=== PATIENT | female | born 1960 | race Caucasian/White ===

== ENCOUNTER → 2016-10-03 | Outpatient (CLI) | payer BC ==
[~2016-10-03] MED LIST: AMLO2.5T2 PO; ASPI-113 PO; MEDR10TA PO; METO25TA3 PO
[2016-10-03 13:14] LABS: BASO % 0.8 %; BASO ABS # 0.04 K/uL (0-0.2); COMPLETE YES; EOS % 1.7 %; HEMATOCRIT 40.4 % (37-47); IG% 0.2 %; LYMPH % 21.2 %; MEAN CELL VOLUME 94.6 fL (80-100); MEAN CORPUSCULAR HEMOGLOBIN 32.3 pg (25-34); MEAN CORPUSCULAR HGB CONC 34.2 g/dl (32-36); MEAN PLATELET VOLUME 11.2 fL (7.4-10.4); MONO % 5.7 %; NEUT % 70.4 %; PLATELET COUNT 208 K/uL (130-400); RED BLOOD COUNT 4.27 M/uL (4.2-5.4); WHITE BLOOD COUNT 4.72 K/uL (4.8-10.8)
[2016-10-03 13:19] LABS: ALT/SGPT 28 U/L (12-78); BLOOD UREA NITROGEN 13 mg/dl (7-18); CALCIUM 9.2 mg/dl (8.5-10.1); CARBON DIOXIDE 29 mmol/L (21-32); CHLORIDE 102 mmol/L (98-107); CHOLESTEROL 239 mg/dl (0-200); CREATININE 0.63 mg/dl (0.60-1.20); GLUCOSE 93 mg/dl (70-99); POTASSIUM 3.8 mmol/L (3.5-5.1); SODIUM 141 mmol/L (136-145); TRIGLYCERIDES 45 mg/dl (0-150); VERY LOW DENSITY LIPOPROT CALC 9 mg/dl
[2016-10-03 13:22] LABS: ALB/GLOB RATIO 1.2 (0.9-2); ALKALINE PHOSPHATASE 61 U/L (45-117); AST/SGOT 26 U/L (15-37); CHOLESTEROL/HDL RATIO 2.5; HDL CHOLESTEROL 95 mg/dl; LDL CHOLESTEROL CALCULATED 135 mg/dl
== END | disposition home or self-care (01) ==
LOC: C.LABSPEC 12:34
PROVIDERS: ATTEND Internal Medicine
DX: I10 Essential (primary) hypertension (principal); E78.5 Hyperlipidemia, unspecified

== ENCOUNTER → 2016-10-29 | Outpatient (CLI) | payer BC | END | disposition home or self-care (01) | LOC: C.PAPS 15:01 | PROVIDERS: ATTEND Obstetrics & Gynecology | DX: Z01.419 Encounter for gynecological examination (general) (routine) without abnormal findings (principal) ==

== ENCOUNTER → 2016-11-07 | Outpatient (CLI) | payer BC ==
--- NOTE | 2016-11-07 10:06 | DIAGNOSTIC IMAGING REPORT ---
ULTRASOUND OF THE PELVIS CLINICAL HISTORY: Postmenopausal bleeding. COMPARISON STUDY: Pelvic ultrasound dated 02/20/2013. TECHNIQUE: Real-time, grayscale, and color flow sonography of the pelvis is performed both transabdominally and endovaginally. Images are reviewed in the transverse and longitudinal planes. FINDINGS: Uterus: The uterus is normal in size and echotexture, measuring 8.2 x 4.8 x 5.5 cm. Small the both in cysts are incidentally noted in the cervix. Endometrium: The endometrium is normal in appearance, and the endometrial stripe is normal in thickness measuring up to 0.3 cm. Ovaries: The right ovary is normal as visualized, measuring 2.0 x 2.1 x 2.1 cm. The left ovary was not seen. Pelvis: There is trace free fluid in the cul-de-sac. No concerning adnexal lesion is seen. IMPRESSION: 1. The uterus is normal in appearance, and the endometrial stripe measures 3 mm. 2. The right ovary is normal as visualized. The left ovary was not seen. 3. There is trace nonspecific free fluid in the cul-de-sac. Electronically signed by: Tani Shetty M.D. 11/07/2016 10:05 AM Dictated Date/Time: 11/07/2016 10:03 AM
== END | disposition home or self-care (01) ==
LOC: C.ULTR 09:10
PROVIDERS: ATTEND Obstetrics & Gynecology
DX: N95.0 Postmenopausal bleeding (principal)

== ENCOUNTER → 2017-06-05 | Outpatient (CLI) | payer BC | END | disposition home or self-care (01) | LOC: C.LABSPEC 15:23 | PROVIDERS: ATTEND Internal Medicine | DX: Z12.11 Encounter for screening for malignant neoplasm of colon (principal) ==

== ENCOUNTER 2019-12-03 10:09 | Observation (INO) ==
[2019-12-03] MEDS ORDERED: ONDANSETRON INJ 2 MG/ML 2 ML VIAL IV STA (11:32)
[2019-12-03] MEDS ORDERED: SODIUM CHLORIDE 0.9% 1000ML 1,000 ML IV SCH (11:45)
--- NOTE | 2019-12-03 12:02 | Emergency Department Note ---
ED Provider Note CHIEF COMPLAINT: Fatigue/malaise, nausea, chills, palpitations HISTORY OF PRESENTING ILLNESS: This is a 59-year-old female who presents to the emergency department by private vehicle with her with concern for flu- like symptoms that started yesterday. Patient states that she has been feeling nauseated, chills but no known fevers, palpitations off and on, and severe malaise/fatigue. She also notes that she has a mild generalized headache, which has been fairly constant, she describes it as a dull ache, and rates the pain a 2/10. She denies any vomiting or diarrhea and has still had an appetite. She does note that she has been having increased palpitations and feeling like her heart is racing at times, she notes a history of SVT, but she feels like this has been worse recently. She denies any chest pain, shortness of breath, dizziness or syncope. She does note that she has had some increased thirst and increased urination, but also notes that she drinks a lot of water throughout the day and has been trying to even drink more. 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 She denies any students with known risk factors or diagnosis for coronavirus. She denies any recent travel or antibiotic use. She notes that she has had 2 similar episodes of these types of symptoms in the past month that lasted a few days and then seemed to resolve. She is convinced that she has some sort of a virus, and she felt that her symptoms came on fairly abruptly yesterday. She denies any neck pain or stiffness. She denies any unusual rash. REVIEW OF SYSTEMS: A complete 10 point review of systems was reviewed with the patient with pertinent positives and negatives as per history of present illness. All else were negative. PAST MEDICAL HISTORY: Hypertension, SVT SOCIAL HISTORY: Lives at home with her , she denies tobacco use ALLERGIES: Reviewed in chart and with the patient PHYSICAL EXAM: CONSTITUTIONAL: Pleasant and cooperative. Nontoxic-appearing and in no acute distress, but appears fatigued. Mildly dehydrated, but otherwise generally well appearing and well nourished. HEENT: Normocephalic, atraumatic. PERRL, EOMI. TMs normal, no hemotympanum bilaterally. Pharynx is not erythematous, no tonsillar edema or exudate. Tacky mucous membranes. NECK: Supple, full active range of motion without discomfort. No cervical adenopathy. No nuchal rigidity or meningismus. RESPIRATORY: Clear to auscultation bilaterally with no wheezing, crackles, rhonchi or stridor. Equal expansion bilaterally. CARDIOVASCULAR: Regular rate and rhythm with no murmurs, rubs or gallops. Normal peripheral perfusion. No edema. GASTROINTESTINAL: Soft, nontender, nondistended. No palpable masses or HSM. Bowel sounds present in all quadrants. No CVA tenderness bilaterally. MUSCULOSKELETAL: Full range of motion of all joints without discomfort. INTEGUMENTARY: No rash or other significant dermatologic conditions noted. NEUROLOGIC: Alert and oriented X 4 with normal affect. Cranial nerves II-XII grossly intact, no facial droop. No pronator drift. 5/5 strength in all 4 extremities touch in all 4 extremities. No focal neurologic deficits noted. Normal speech. Normal gait observed. ED COURSE AND MEDICAL DECISION MAKING: CC: Patient presenting with complaint of fatigue/malaise, nausea, chills, palpitations DIFFERENTIAL DIAGNOSIS: Includes, but not limited to influenza, viral illness, gastroenteritis, cardiac dysrhythmia, PE, ACS, thyroid disorder or other endocrinologic disorder, dehydration, electrolyte abnormality, intracranial abnormality, hypertensive urgency, among others. INTERPRETATION OF LABS: No leukocytosis, no anemia, normal platelets, mild hyponatremia, mild hypokalemia, no other significant electrolyte abnormalities, normal renal function, normal liver enzymes and lipase. Negative troponin. Negative d-dimer. TSH within normal limits. UA negative for infection. Influenza A/B negative. IMAGING: CT head/brain wo con CLINICAL HISTORY: 59 years-old Female with headache, fatigue. Acute headache with fatigue TECHNIQUE: Multiple axial CT images of the head were obtained without contrast. A dose lowering technique was utilized adhering to the principles of ALARA. CT DOSE: 537.48 mGy.cm COMPARISON: Brain MRI 06/17/2013 FINDINGS: No acute intracranial hemorrhage, midline shift, intracranial mass, hydrocephalus, territorial ischemia or abnormal extra-axial collection. The calvarium is intact. Mastoid air cells are clear. The paranasal sinuses are also generally clear with a single focus of minimal mucosal thickening involving a posterior left ethmoid air cell, image 6 of series 3. IMPRESSION: No acute intracranial abnormality. ----- XR chest 2V PA/lateral CLINICAL HISTORY: 59 years-old Female presenting with fatigue, tachycardia, chills. TECHNIQUE: PA and lateral views of the chest were obtained. COMPARISON: 06/05/2012. FINDINGS: Cardiomediastinal silhouette normal. Lungs and pleural spaces clear. Osseous structures normal. Upper abdomen normal. IMPRESSION: 1. No acute cardiopulmonary disease. EKG: Shows normal sinus rhythm with a rate of 75 bpm, normal intervals, no ST or T wave abnormalities, no ectopy, no significant change when compared to previous EKG from 06/06/2012 by my interpretation. MEDICATION RECONCILIATION: I attest that I have personally reviewed the patient's current medication list. INITIAL VITAL SIGNS REVIEW: I reviewed the patient's initial vital signs and interpret them as follows: T: Afebrile; BP: Hypertensive; HR: Tachycardic; RR: Within normal limits; Pulse Ox: Within normal limits on room air. Blood pressure screening: The patient was found to have an elevated blood pressure and was referred to the inpatient team for further management. MDM SUMMARY: Patient was evaluated at bedside, history and physical exam performed. Patient is alert and oriented, in no acute distress, but appears to feel unwell, laying in the stretcher. She is noted to be mildly tachycardic and appears mildly dehydrated clinically. She is noted to be afebrile. Neurologic exam is intact with no focal deficits. No nuchal rigidity or meningismus. No abdominal tenderness on exam. Orders were placed at bedside for labs, influenza, troponin and d-dimer, TSH, UA, IV fluid bolus for hydration, EKG, chest x-ray, head CT. Patient discussed with Dr. Carter, who also evaluated the patient and agrees with my assessment, plan, and disposition. Labs and imaging reviewed as above, no leukocytosis. Influenza is negative. Troponin and d-dimer are both negative. TSH within normal limits. Mild hyponatremia and hypokalemia. Normal renal function. No UTI. Chest x-ray is clear. CT of the head is unremarkable. EKG does not show any dysrhythmias or ischemic changes. Given the patient's persistent symptoms of severe fatigue with unclear etiology, as well as reported worsening of her bouts of SVT/tachycardia, I did feel that she may benefit from further work-up. I spoke on the phone with Dr. Power, who agrees to evaluate the patient for inpatient care. Patient reassessed multiple times throughout ED stay, she has remained h emodynamically stable, tachycardia is resolved and downtrending, she remains afebrile. The patient and her were updated on all results and plan for hospital observation, they verbalized understanding and were agreeable to this plan. The patient was stable at time of admission. The chart was completed utilizing [employer] Speech voice recognition software. Grammatical errors, random word insertions, pronoun errors, and incomplete sentences are an occasional consequence of this system due to software limitations, ambient noise, and hardware issues. Any formal questions or concerns about the content, text, or information contained within the body of this dictation should be directly addressed to the nurse practitioner for clarification. Impression & Plan HTN (hypertension), Fatigue, Hypokalemia, SVT (supraventricular tachycardia) Past Med/Surg History Medical History Endometrial polyp History of postmenopausal bleeding Ovarian cyst Surgical History S/P dilation and curettage Family History Grandmother (Maternal) Breast cancer Family/Other Coronary heart disease Grandmother (Paternal) Ovarian cancer Denies family history of Colorectal cancer Social History (Updated 12/03/19 @ 14:04 by Beernice Power DO) Preferred Language: Lithuanian Communication Ability: Effective Set Up Inspector Required: No Beliefs That Will Affect Care: None Current Living Situation: Spouse current occupational status: employed current occupation: physician Other Information That Helps Us Care for You: No Feels Safe at Home: Yes Safety Concerns: Feels Safe At This Time Smoking Status: Never smoker Do You Dip or Chew Tobacco: No ; Second Hand Exposure: No ; Tobacco Cessation Education Requested by Patient: No Hx Alcohol Use: Yes Alcohol type: beer Alcohol Intake Frequency Comment: 1 beer a week, but less since feeling unwell starting in July Hx Substance Use: No Results & Data Vital Signs Vital Signs - 24 hr 12/03/19 10:32 12/03/19 10:58 12/03/19 11:00 Temperature 36.6 C Temperature Source Oral Pulse Rate 106 H 80 75 Pulse Rate from SpO2 Sensor 76 Pulse Rhythm Regular Pulse Strength Normal Respiratory Rate 20 14 12 Respiratory Effort / Characteristics Non-Labored Spontaneous Respiratory Depth Normal Respiratory Pattern Regular Blood Pressure 183/115 H 189/98 H 176/95 H Blood Pressure Mean 137 117 103 Blood Pressure Position Sitting Pulse Oximetry 100 100 Oxygen Delivery Method Room Air Sepsis Recent Fever Within 48 Hours No Sepsis New/Unexplained Change in Mental Status No Sepsis Action Taken by Nursing No Action Required 12/03/19 11:02 12/03/19 11:43 12/03/19 12:00 Temperature Temperature Source Pulse Rate 74 74 69 Pulse Rate from SpO2 Sensor 73 71 Pulse Rhythm Pulse Strength Respiratory Rate 16 21 20 Respiratory Effort / Characteristics Respiratory Depth Respiratory Pattern Blood Pressure 147/86 H Blood Pressure Mean 97 Blood Pressure Position Pulse Oximetry 100 100 Oxygen Delivery Method Sepsis Recent Fever Within 48 Hours Sepsis New/Unexplained Change in Mental Status Sepsis Action Taken by Nursing 12/03/19 12:46 12/03/19 13:00 12/03/19 13:54 Temperature Temperature Source Pulse Rate 70 70 Pulse Rate from SpO2 Sensor 69 68 70 Pulse Rhythm Pulse Strength Respiratory Rate 20 19 Respiratory Effort / Characteristics Respiratory Depth Respiratory Pattern Blood Pressure 142/82 H Blood Pressure Mean 93 Blood Pressure Position Pulse Oximetry 97 99 100 Oxygen Delivery Method Sepsis Recent Fever Within 48 Hours Sepsis New/Unexplained Change in Mental Status Sepsis Action Taken by Nursing 12/03/19 13:55 Temperature Temperature Source Pulse Rate 70 Pulse Rate from SpO2 Sensor 71 Pulse Rhythm Pulse Strength Respiratory Rate 17 Respiratory Effort / Characteristics Respiratory Depth Respiratory Pattern Blood Pressure 163/91 H Blood Pressure Mean 108 Blood Pressure Position Pulse Oximetry 100 Oxygen Delivery Method Sepsis Recent Fever Within 48 Hours Sepsis New/Unexplained Change in Mental Status Sepsis Action Taken by Nursing Laboratory Data Result diagrams: 12/03/19 11:50 12/03/19 11:50 Lab Results 12/03/19 12/03/19 12/03/19 Range/Units 11:45 11:45 11:50 WBC 7.53 (4.8-10.8) K/uL RBC 4.55 (4.2-5.4) M/uL Hgb 15.1 (12.0-16.0) g/dL Hct 43.2 (37-47) % MCV 94.9 (80-100) fL MCH 33.2 (25-34) pg MCHC 35.0 (32-36) g/dL RDW Std Deviation 42.1 (36.4-46.3) fL RDW Coeff of Lola 12.3 (11.5-14.5) % Plt Count 223 (130-400) K/uL MPV 10.5 H (7.4-10.4) fL Immature Gran % (Auto) 0.1 % Neut % (Auto) 83.6 % Lymph % (Auto) 7.7 % [place] % (Auto) 8.1 % Eos % (Auto) 0.1 % Baso % (Auto) 0.4 % Immature Gran # (Auto) 0.01 (0.00-0.02) K/uL Neut # (Auto) 6.29 (1.4-6.5) K/uL Lymph # (Auto) 0.58 L (1.2-3.4) K/uL [place] # (Auto) 0.61 H (0.11-0.59) K/uL Eos # (Auto) 0.01 (0-0.5) K/uL Baso # (Auto) 0.03 (0-0.2) K/uL D-Dimer (0-500) ug/L FEU Sodium (136-145) mmol/L Potassium (3.5-5.1) mmol/L Chloride (98-107) mmol/L Carbon Dioxide (21-32) mmol/L Anion Gap (3-11) BUN (7-18) mg/dl Creatinine (0.6-1.2) mg/dl Est Cr Clr Drug Dosing ml/min Est GFR ( Amer) Est GFR (Non-Af Amer) BUN/Creatinine Ratio (10-20) Glucose (70-99) mg/dl Calcium (8.5-10.1) mg/dl Total Bilirubin (0.2-1) mg/dl AST (15-37) U/L ALT (12-78) U/L Alkaline Phosphatase (45-117) U/L Troponin I (0-0.045) ng/ml Total Protein (6.4-8.2) gm/dl Albumin (3.4-5.0) gm/dl Globulin (2.5-4.0) gm/dl Albumin/Globulin Ratio (0.9-2) Lipase (73-393) U/L TSH (0.300-4.500) uIu/ml Urine Color Yellow Urine Appearance Clear (Clear) Urine pH 8.0 H (4.5-7.5) Ur Specific [place] 1.010 (1.000-1.030) Urine Protein Negative (Negative) Urine Glucose (UA) Negative (Negative) Urine Ketones Negative (Negative) Urine Blood Negative (Negative) Urine Nitrite Negative (Negative) Urine Bilirubin Negative (Negative) Urine Urobilinogen Negative (Negative) Ur Leukocyte Esterase Negative (Negative) Influenza Type A (PCR) Neg for Influ A (Neg) Influenza Type B (PCR) Neg for Influ B (Neg) 12/03/19 12/03/19 Range/Units 11:50 11:50 WBC (4.8-10.8) K/uL RBC (4.2-5.4) M/uL Hgb (12.0-16.0) g/dL Hct (37-47) % MCV (80-100) fL MCH (25-34) pg MCHC (32-36) g/dL RDW Std Deviation (36.4-46.3) fL RDW Coeff of Lola (11.5-14.5) % Plt Count (130-400) K/uL MPV (7.4-10.4) fL Immature Gran % (Auto) % Neut % (Auto) % Lymph % (Auto) % [place] % (Auto) % Eos % (Auto) % Baso % (Auto) % Immature Gran # (Auto) (0.00-0.02) K/uL Neut # (Auto) (1.4-6.5) K/uL Lymph # (Auto) (1.2-3.4) K/uL [place] # (Auto) (0.11-0.59) K/uL Eos # (Auto) (0-0.5) K/uL Baso # (Auto) (0-0.2) K/uL D-Dimer < 190 (0-500) ug/L FEU Sodium 133 L (136-145) mmol/L Potassium 3.1 L (3.5-5.1) mmol/L Chloride 98 (98-107) mmol/L Carbon Dioxide 28 (21-32) mmol/L Anion Gap 6.0 (3-11) BUN 11 (7-18) mg/dl Creatinine 0.80 (0.6-1.2) mg/dl Est Cr Clr Drug Dosing 78.8 ml/min Est GFR ( Amer) 93.5 Est GFR (Non-Af Amer) 80.7 BUN/Creatinine Ratio 13.6 (10-20) Glucose 104 H (70-99) mg/dl Calcium 9.7 (8.5-10.1) mg/dl Total Bilirubin 0.7 (0.2-1) mg/dl AST 22 (15-37) U/L ALT 24 (12-78) U/L Alkaline Phosphatase 76 (45-117) U/L Troponin I < 0.015 (0-0.045) ng/ml Total Protein 8.3 H (6.4-8.2) gm/dl Albumin 4.5 (3.4-5.0) gm/dl Globulin 3.8 (2.5-4.0) gm/dl Albumin/Globulin Ratio 1.2 (0.9-2) Lipase 161 (73-393) U/L TSH 2.860 (0.300-4.500) uIu/ml Urine Color Urine Appearance (Clear) Urine pH (4.5-7.5) Ur Specific [place] (1.000-1.030) Urine Protein (Negative) Urine Glucose (UA) (Negative) Urine Ketones (Negative) Urine Blood (Negative) Urine Nitrite (Negative) Urine Bilirubin (Negative) Urine Urobilinogen (Negative) Ur Leukocyte Esterase (Negative) Influenza Type A (PCR) (Neg) Influenza Type B (PCR) (Neg) Administered Medications Potassium Chloride ([place] / Wtr) 10 meq in 100 mls @ 100 mls/hr IV Q1H ANÍBAL Stop: 12/03/19 22:29 Last Admin: 12/03/19 19:31 Dose: 100 mls/hr Documented by: [id number] Infusion: 12/03/19 19:15 Dose: 100 mls/hr Documented by: [id number] Admin: 12/03/19 18:15 Dose: 100 mls/hr Documented by: [id number] Infusion: 12/03/19 17:44 Dose: 100 mls/hr Documented by: [id number] Admin: 12/03/19 16:44 Dose: 100 mls/hr Documented by: [id number] Discontinued Medications Sodium Chloride (Nss 1000ml) 1,000 mls @ 999 mls/hr IV .Q1H1M ANÍBAL Stop: 12/03/19 12:45 Last Infusion: 12/03/19 12:48 Dose: 0 mls/hr Documented by: [id number] Admin: 12/03/19 11:43 Dose: 999 mls/hr Documented by: [id number] Ondansetron HCl (Zofran) 4 mg IV NOW STA Stop: 12/03/19 11:33 Last Admin: 12/03/19 11:43 Dose: 4 mg Documented by: [id number] Discharge Plan Visit Data *Final* Discharge Date/Time: 12/03/19 14:56 Chief Complaint: Illness Stated Complaint: MALAISE,WEAKNESS,CHILLS,NAUSEA ED Provider: Pratik Carter ED Midlevel Provider: Clementina Dumas Discharge Problem: HTN (hypertension), Fatigue, Hypokalemia, SVT (supraventricular tachycardia) Patient Disposition: Admitted As Inpatient Condition: Good Discharge Instructions Interventions: ED Discharge Assessment Last Done: 12/03/19 14:56
[2019-12-03 12:05] LABS: Basophils # (auto) 0.03 K/uL (0-0.2); Basophils % (auto) 0.4 %; Eosinophils # (auto) 0.01 K/uL (0-0.5); Eosinophils % (auto) 0.1 %; Hematocrit (blood only) 43.2 % (37-47); Hemoglobin 15.1 g/dL (12.0-16.0); Immature Granulocytes # (auto) 0.01 K/uL (0.00-0.02); Immature Granulocytes % (auto) 0.1 %; Lymphocytes # (auto) 0.58 K/uL (1.2-3.4); Lymphocytes % (auto) 7.7 %; Mean Corpuscular Hemoglobin 33.2 pg (25-34); Mean Corpuscular Volume 94.9 fL (80-100); Mean Platelet Volume 10.5 fL (7.4-10.4); Monocytes # (auto) 0.61 K/uL (0.11-0.59); Monocytes % (auto) 8.1 %; Neutrophils # (auto) 6.29 K/uL (1.4-6.5); Neutrophils % (auto) 83.6 %; Platelet Count 223 K/uL (130-400); RDW Coefficient of Variation 12.3 % (11.5-14.5); RDW Standard Deviation 42.1 fL (36.4-46.3); Red Blood Count 4.55 M/uL (4.2-5.4); White Blood Count 7.53 K/uL (4.8-10.8)
[2019-12-03 12:16] LABS: Appearance Urine Clear (Clear); Bilirubin Urine Negative (Negative); Blood Urine Negative (Negative); Color Urine Yellow; Glucose Urine UA Negative (Negative); Ketones Urine Negative (Negative); Leukocyte Esterase Urine Negative (Negative); Nitrite Urine Negative (Negative); Protein Urine Negative (Negative); Urobilinogen Urine Negative (Negative)
[2019-12-03 12:20] LABS: D Dimer < 190 ug/L FEU (0-500)
[2019-12-03 12:22] LABS: Alanine Aminotransferase 24 U/L (12-78); Albumin Level 4.5 gm/dl (3.4-5.0); Aspartate Aminotransferase 22 U/L (15-37); BUN Creatinine Ratio 13.6 (10-20); Blood Urea Nitrogen 11 mg/dl (7-18); Calcium 9.7 mg/dl (8.5-10.1); Carbon Dioxide 28 mmol/L (21-32); Chloride 98 mmol/L (98-107); Creatinine Clr Calc Pharmacy 78.8 ml/min; Est GFR (African American) 93.5; Est GFR (Non-African American) 80.7; Glucose 104 mg/dl (70-99); Lipase 161 U/L (73-393); Potassium 3.1 mmol/L (3.5-5.1); Sodium 133 mmol/L (136-145)
--- NOTE | 2019-12-03 12:37 | CT Scan Report ---
CT head/brain wo con CLINICAL HISTORY: 59 years-old Female with headache, fatigue. Acute headache with fatigue TECHNIQUE: Multiple axial CT images of the head were obtained without contrast. A dose lowering tech nique was utilized adhering to the principles of ALARA. CT DOSE: 537.48 mGy.cm COMPARISON: Brain MRI 06/17/2013 FINDINGS: No acute intracranial hemorrhage, midline shift, intracranial mass, hydrocephalus, territorial ischem ia or abnormal extra-axial collection. The calvarium is intact. Mastoid air cells are clear. The paranasal sinuses are also generally clear with a single focus of minimal mucosal thickening involving a posterior left ethmoid air cell, image 6 of series 3. IMPRESSION: No acute intracranial abnormality. ACT 112: Negative or not required by law. The above report was generated using voice recognition software. It may contain grammatical, syntax o r spelling errors. Electronically signed by: Brice Zhao M.D. 12/03/2019 12:35 PM
[2019-12-03 12:44] LABS: Influenza A virus by PCR Neg for Influ A (Neg); Influenza B virus by PCR Neg for Influ B (Neg)
[2019-12-03 12:45] LABS: Albumin Globulin Ratio 1.2 (0.9-2); Alkaline Phosphatase 76 U/L (45-117); Bilirubin,Total 0.7 mg/dl (0.2-1); Globulin 3.8 gm/dl (2.5-4.0); Total Protein 8.3 gm/dl (6.4-8.2); Troponin I < 0.015 ng/ml (0-0.045)
--- NOTE | 2019-12-03 12:46 | XRay Report ---
XR chest 2V PA/lateral CLINICAL HISTORY: 59 years-old Female presenting with fatigue, tachycardia, chills. TECHNIQUE: PA and lateral views of the chest were obtained. COMPARISON: 06/05/2012. FINDINGS: Cardiomediastinal silhouette normal. Lungs and pleural spaces clear. Osseous structures normal. Upper abdomen normal. IMPRESSION: 1. No acute cardiopulmonary disease. ACT 112: Negative or not required by law. Electronically signed by: Bryan Crystal M.D. 12/03/2019 12:45 PM
--- NOTE | 2019-12-03 14:10 | History & Physical Report ---
Date of Service December 03, 2019 Assessment & Plan (1) Fatigue: Uncertain etiology TSH WNL CBC, cr WNL UA neg Flu neg CXR, CT head neg for acute EKG WNL Ddimer neg Trop neg Lyme, B1, B12 pending (high normal MCV) 24 hour urine catecholamine given palps, headache, HTN epispodes hypoK noted t/c stress test vs holter if workup is neg (2) Hypokalemia: replace and monitor Interesting in the setting of recent high K diet (3) SVT (supraventricular tachycardia): EKG WNL Monitor on tele (4) HTN (hypertension): continue home meds (5) DVT prophylaxis: SCDs History of Present Illness Primary Care Provider: Pino Aguilar MD 59 y/o F c/o malaise and fatigue. Pt states that she started to have fatigue around July. She had some episodes of exercise intolerance to walking and treadmill running, but other times she would feel this was WNL. Over the last 1.5-2 months, pt has had 3 episodes of feeling quite unwell. She would have intense fatigue, headache, nausea w/o emesis, chills, malaise, inability to sleep, and tachycardia. She has hx of SVT and would feel palpitations with a HR in the 160s and her BP would be elevated. This would last for about 2-3 days and then she would have feel slightly improved but still unwell for about 4-5 days, and then return to normal for 2-3 weeks until a repeat episode. She has felt like this since yesterday. With the first two episodes, she had diarrhea, but no diarrhea with the current episode. Pt went to work yesterday and felt so unwell that she had to come home. She does feel lightheaded when she feels her SVT, but not outside of this. It was noted in triage that pt's HR was in the 160s. Pt was seen by PCP for this prior and a stress ECHO was ordered, however it was denied by insurance. She called today to be seen after leaving work yesterday. Labs were requested prior to the visit, however pt felt too fatigued to go to the lab, so they came to the ED instead. Pt states that she has been eating a high potassium diet recently in an effort to feel better, but no K supplements. She has been focusing on fruits and vegetables with higher K amounts. This has not helped. Pt states her usual BP in 125/70 or less and she does check fairly often due to HTN hx. Pt denies fever, SOB, chest pain, abd pain, LE pain or swelling. No urinary sx. She has been able to eat without issue, even when nauseated. Allergies Allergy/AdvReac Type Severity Reaction Status Date / Time cat dander Allergy Severe SHORTNESS Verified 12/03/19 13:32 OF BREATH amoxicillin Allergy Verified 12/03/19 13:32 ampicillin Allergy Verified 12/03/19 13:32 Home Medications Home Medications Medication Instructions Recorded Confirmed Type amlodipine 2.5 mg tablet 2.5 mg PO HS 11/02/19 12/03/19 History Past Med/Surg History Medical History Endometrial polyp History of postmenopausal bleeding Ovarian cyst Surgical History S/P dilation and curettage Family History Grandmother (Maternal) Breast cancer Family/Other Coronary heart disease Grandmother (Paternal) Ovarian cancer Denies family history of Colorectal cancer Social History (Updated 12/03/19 @ 14:04 by Berenice Power DO) Preferred Language: Syriac current occupational status: employed current occupation: physician Feels Safe at Home: Yes Smoking Status: Never smoker Hx Alcohol Use: Yes Alcohol Intake Frequency Comment: 1 beer a week, but less since feeling unwell starting in July Hx Substance Use: No Review of Systems Review of Systems: Pertinent positives and negatives reviewed in HPI--all others negative Physical Exam Constitutional: WD/WN, vitals as above Eyes: normal visual hooper by confrontation and + anicteric sclerae Neck: normal visual inspection and trachea midline Respiratory: normal respiratory effort, lungs clear to auscultation Cardiovascular: Rate/Rhythm: regular rate and regular rhythm Gastrointestinal (Abdomen): Inspection/Auscultation: abdomen not distended Percussion/Palpation: abdomen soft; abdomen nontender Musculoskeletal: Head/Neck/Chest: normocephalic and head atraumatic negative for edema, peripheral pulses intact Skin: no rashes, warm and dry Neurologic: awake; not confused Speech / Cognition: normal speech Psychiatric: A+Ox3, euthymic affect Affect: + anxious affect (mildly anxious) Results & Data Vital Signs (Past 12 Hours) Vital Signs Temp Pulse Resp BP Pulse Ox 12/03/19 13:00 70 20 142/82 H 99 12/03/19 12:46 97 12/03/19 12:00 69 20 147/86 H 100 12/03/19 11:43 74 21 12/03/19 11:02 74 16 100 12/03/19 11:00 75 12 176/95 H 100 12/03/19 10:58 80 14 189/98 H 12/03/19 10:32 36.6 C 106 H 20 183/115 H 100 Diagnostic Findings CXR: neg for acute CT head: neg for acute ECG Rhythm: normal sinus Code Status & VTE Plan Code Status Full code VTE Prophylaxis Plan VTE Prophylaxis will be ordered: Yes PG Care Time/CCT Total # of Minutes Spent Total Time Spent with Patient: Total time spent is greater than 50% in coordination of care (as documented) at patient's floor/unit and/or counseling patient: Coding Level of Care Code 99316 OBS Care - Level 3 Diagnoses Fatigue R53.83 Hypokalemia E87.6 SVT (supraventricular tachycardia) I47.1 HTN (hypertension) I10 DVT prophylaxis Z29.9
[2019-12-03] MEDS ORDERED: ONDANSETRON INJ 2 MG/ML 2 ML VIAL IV PRN (15:55)
[2019-12-03] MEDS ORDERED: POTASSIUM CHLORIDE / WTR 20 MEQ/100 ML PLCT IV STA (15:55)
[2019-12-03] MEDS ORDERED: ACETAMINOPHEN 325 MG TAB PO PRN (15:55)
[2019-12-03] MEDS ORDERED: MAGNESIUM HYDROXIDE SUSP 30 ML UDC PO PRN (15:55)
[2019-12-03] MEDS: POTASSIUM CHLORIDE / WTR 10 MEQ/100 ML PLCT IV SCH ×6 (16:44→23:07)
--- NOTE | 2019-12-03 17:03 | Electrocardiogram Report ---
Test Reason : Blood Pressure : / mmHG Vent. Rate : 075 BPM Atrial Rate : 075 BPM P-R Int : 156 ms QRS Dur : 086 ms QT Int : 382 ms P-R-T Axes : 083 070 051 degrees QTc Int : 426 ms Normal sinus rhythm Possible Left atrial enlargement Borderline ECG When compared with ECG of 06-JUN-2012 06:42, Vent. rate has increased BY 25 BPM Questionable change in QRS axis Confirmed by Kj Quinn ([id number]) on 12/03/2019 5:03:09 PM Referred By: REFERRED SELF Confirmed By:Kj Quinn
[2019-12-03 20:56] LABS: Lyme Ab IgG w/WB Rflx Negative (Negative)
[2019-12-03 20:59] LABS: Lyme Ab IgM w/WB Rflx Equivocal (Negative)
[2019-12-03] MEDS: AMLODIPINE BESYLATE 5 MG TAB PO SCH (21:02)
[2019-12-04 07:55] LABS: Basophils # (auto) 0.03 K/uL (0-0.2); Basophils % (auto) 0.9 %; Eosinophils # (auto) 0.05 K/uL (0-0.5); Eosinophils % (auto) 1.5 %; Hematocrit (blood only) 41.3 % (37-47); Hemoglobin 14.5 g/dL (12.0-16.0); Lymphocytes # (auto) 1.16 K/uL (1.2-3.4); Lymphocytes % (auto) 34.3 %; Mean Corpuscular Hemoglobin 33.3 pg (25-34); Mean Corpuscular Hgb Conc 35.1 g/dL (32-36); Mean Corpuscular Volume 94.9 fL (80-100); Mean Platelet Volume 10.2 fL (7.4-10.4); Monocytes # (auto) 0.27 K/uL (0.11-0.59); Neutrophils # (auto) 1.87 K/uL (1.4-6.5); Neutrophils % (auto) 55.3 %; Platelet Count 216 K/uL (130-400); RDW Coefficient of Variation 12.5 % (11.5-14.5); RDW Standard Deviation 43.1 fL (36.4-46.3); Red Blood Count 4.35 M/uL (4.2-5.4); White Blood Count 3.38 K/uL (4.8-10.8)
[2019-12-04 08:23] LABS: BUN Creatinine Ratio 16.1 (10-20); Calcium 9.4 mg/dl (8.5-10.1); Creatinine Clr Calc Pharmacy 80.8 ml/min; Est GFR (African American) 101.1; Est GFR (Non-African American) 87.2; Magnesium 2.1 mg/dl (1.8-2.4); Phosphorus 3.6 mg/dl (2.5-4.9); Potassium 3.5 mmol/L (3.5-5.1)
--- NOTE | 2019-12-04 11:03 | Nephrology Consultation ---
Date of Consultation December 04, 2019 Assessment & Plan (1) HTN (hypertension): -- Age of onset, paroxysmal nature, hypokalemia/metabolic alkalosis and h/o R renal atrophy are concerning for secondary cause -- TSH is normal. Will check am cortisol -- Will order 24 hour urine catecholamines -- Preserved kidney function w/ acellular urine sediment. 2011 pelvic US revealed R renal atrophy. Will order renal US w/ renal artery duplex -- Monitor PRP. If potassium trends down will consider checking FeK and trial of amiloride -- Continue low dose Amlodipine (2) Hypokalemia: (3) SVT (supraventricular tachycardia): (4) Fatigue: History of Present Illness Reason for Consultation: Hypertension Attending Physician: Armand Sanchez History of Present Illness Dr. Conn is a 59 year old white female who is seen at the request of Dr. Hill for evaluation of HTN. 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 Her medical history is significant for HTN diagnosed when she was 51 years of age. She was hospitalized at that time for evaluation of fatigue, chest discomfort, palpitations and JENKINS. Stress echo was ordered but not covered by insurance. BP was controlled w/ Toprol-XL 37.5 mg and Amlodipine 2.5 mg daily. Following discharge from the hospital Dr. Conn was able to taper off the Toprol and reports that BP has been 120 - 130 mmHg at home while on Amlodipine therapy. In 05/04 Dr. Conn underwent CREELER evaluation for menorrhagia. Pelvic US revealed R kidney 12 cm, L 8.5 cm. She reports that an MRA performed at that time was negative for FLYNN. Over the last [address] Conn has had three episodes where she awoke from sleep w/ profound thirst, LOPEZ, palpiations, flushing and weakness. Yesteday he BP was check during the episode and found to be > 200 mmHg systolic. ED evaluation confirmed hypertensive urgency and tachycardia. Kidney function was preserved. Cr 0.7. Urinalysis was acellular. Mild hypokalemic metabolic alkalosis was noted. KCl was administered. TSH was found to be normal. Nonfasting BSG was < 200. Senia has been admitted to telemetry for ongoing evaluation of HTN. Allergies Allergy/AdvReac Type Severity Reaction Status Date / Time cat dander Allergy Severe SHORTNESS Verified 12/03/19 13:32 OF BREATH amoxicillin Allergy Verified 12/03/19 13:32 ampicillin Allergy Verified 12/03/19 13:32 Home Medications Home Medications Medication Instructions Recorded Confirmed Type amlodipine 2.5 mg tablet 2.5 mg PO HS 11/02/19 12/03/19 History Patient History Medical History (Updated 12/03/19 @ 20:27 by CHEMA Levy) Endometrial polyp History of postmenopausal bleeding Ovarian cyst Surgical History S/P dilation and curettage Family History (Updated 12/04/19 @ 11:09 by Adebayo Benitez MD) Grandmother (Maternal) Breast cancer Family/Other Coronary heart disease Grandmother (Paternal) Ovarian cancer Denies family history of Kidney disease Colorectal cancer Social History (Updated 12/03/19 @ 14:04 by Berenice Power DO) Preferred Language: Occitan Communication Ability: Effective 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 Beliefs That Will Affect Care: None Current Living Situation: Spouse current occupational status: employed current occupation: physician Other Information That Helps Us Care for You: No Feels Safe at Home: Yes Safety Concerns: Feels Safe At This Time Smoking Status: Never smoker Do You Dip or Chew Tobacco: No ; Second Hand Exposure: No ; Tobacco Cessation Education Requested by Patient: No Hx Alcohol Use: Yes Alcohol type: beer Alcohol Intake Frequency Comment: 1 beer a week, but less since feeling unwell starting in July Hx Substance Use: No Review of Systems Constitutional: + fatigue; no fever and no weight loss Eyes: no problem reported Ear, Nose, Mouth, Throat: no tinnitus and no dizziness Respiratory: no cough and no dyspnea Cardiovascular: + palpitations Gastrointestinal: no abdominal pain, no vomiting and no diarrhea/loose stools Genitourinary: no urinary frequency and no urinary incontinence + polydipsia, polyuria Integumentary: no lesions Neurologic: + headache(s) Physical Exam Constitutional: well developed, well nourished and healthy appearing Eyes: PERRL, conjunctivae normal, anicteric sclerae ENMT: external ear and nose normal, oropharynx normal Neck: trachea midline, no thyromegaly Respiratory: normal respiratory effort, lungs clear to auscultation Cardiovascular: RRR, no murmur, no edema symmetric radial pulses. No radial femoral pulse delay. No carotid or RA bruit Gastrointestinal (Abdomen): normal bowel sounds, soft, nontender, no hepatosplenomegaly Musculoskeletal: Extremities: no cyanosis and no clubbing Skin: no rashes, warm and dry Neurologic: awake; not confused Results & Data Vital Signs (Past 12 Hours) Vital Signs Temp Pulse Pulse Resp BP Pulse Ox 12/04/19 10:32 65 12/04/19 10:24 76 168/97 H 12/04/19 09:21 36.4 C L 76 18 166/95 H 100 12/04/19 07:55 36.8 C 66 16 124/66 95 12/03/19 23:48 36.7 C 61 16 136/84 97 Laboratory Results Laboratory Results - last 24 hr 12/03/19 12/03/19 12/03/19 11:45 11:45 11:50 WBC 7.53 RBC 4.55 Hgb 15.1 Hct 43.2 MCV 94.9 MCH 33.2 MCHC 35.0 RDW Std Deviation 42.1 RDW Coeff of Lola 12.3 Plt Count 223 MPV 10.5 H Immature Gran % (Auto) 0.1 Neut % (Auto) 83.6 Lymph % (Auto) 7.7 [place] % (Auto) 8.1 Eos % (Auto) 0.1 Baso % (Auto) 0.4 Immature Gran # (Auto) 0.01 Neut # (Auto) 6.29 Lymph # (Auto) 0.58 L [place] # (Auto) 0.61 H Eos # (Auto) 0.01 Baso # (Auto) 0.03 D-Dimer Sodium Potassium Chloride Carbon Dioxide Anion Gap BUN Creatinine Est Cr Clr Drug Dosing Est GFR ( Amer) Est GFR (Non-Af Amer) BUN/Creatinine Ratio Glucose Calcium Phosphorus Magnesium Total Bilirubin AST ALT Alkaline Phosphatase Troponin I Total Protein Albumin Globulin Albumin/Globulin Ratio Lipase Whole Bld Vitamin B1 Vitamin B12 TSH Epineph & Norepi Total Urine Color Yellow Urine Appearance Clear Urine pH 8.0 H Ur Specific [place] 1.010 Urine Protein Negative Urine Glucose (UA) Negative Urine Ketones Negative Urine Blood Negative Urine Nitrite Negative Urine Bilirubin Negative Urine Urobilinogen Negative Ur Leukocyte Esterase Negative Ur 24 Hour Volume Ur Epinephrine 24 Hr U Norepinephrine 24 Hr Ur Dopamine 24 Hr Urine Creatinine Lyme Disease IgG Ab Lyme IgG (Western Blot) Lyme IgG 18 kDa Band Lyme IgG 23 kDa Band Lyme IgG 28 kDa Band Lyme IgG 30 kDa Band Lyme IgG 39 kDa Band Lyme IgG 41 kDa Band Lyme IgG 45 kDa Band Lyme IgG 58 kDa Band Lyme IgG 66 kDa Band Lyme IgG 93 kDa Band Lyme IgM Ab (WB) Lyme Disease IgM Ab Lyme IgM 23 kDa Band Lyme IgM 39 kDa Band Lyme IgM 41 kDa Band Influenza Type A (PCR) Neg for Influ A Influenza Type B (PCR) Neg for Influ B 12/03/19 12/03/19 12/03/19 11:50 11:50 16:15 WBC RBC Hgb Hct MCV MCH MCHC RDW Std Deviation RDW Coeff of Lola Plt Count MPV Immature Gran % (Auto) Neut % (Auto) Lymph % (Auto) [place] % (Auto) Eos % (Auto) Baso % (Auto) Immature Gran # (Auto) Neut # (Auto) Lymph # (Auto) [place] # (Auto) Eos # (Auto) Baso # (Auto) D-Dimer < 190 Sodium 133 L Potassium 3.1 L Chloride 98 Carbon Dioxide 28 Anion Gap 6.0 BUN 11 Creatinine 0.80 Est Cr Clr Drug Dosing 78.8 Est GFR ( Amer) 93.5 Est GFR (Non-Af Amer) 80.7 BUN/Creatinine Ratio 13.6 Glucose 104 H Calcium 9.7 Phosphorus Magnesium Total Bilirubin 0.7 AST 22 ALT 24 Alkaline Phosphatase 76 Troponin I < 0.015 Total Protein 8.3 H Albumin 4.5 Globulin 3.8 Albumin/Globulin Ratio 1.2 Lipase 161 Whole Bld Vitamin B1 Vitamin B12 TSH 2.860 Epineph & Norepi Total Urine Color Urine Appearance Urine pH Ur Specific [place] Urine Protein Urine Glucose (UA) Urine Ketones Urine Blood Urine Nitrite Urine Bilirubin Urine Urobilinogen Ur Leukocyte Esterase Ur 24 Hour Volume Ur Epinephrine 24 Hr U Norepinephrine 24 Hr Ur Dopamine 24 Hr Urine Creatinine Lyme Disease IgG Ab Negative Lyme IgG (Western Blot) Lyme IgG 18 kDa Band Lyme IgG 23 kDa Band Lyme IgG 28 kDa Band Lyme IgG 30 kDa Band Lyme IgG 39 kDa Band Lyme IgG 41 kDa Band Lyme IgG 45 kDa Band Lyme IgG 58 kDa Band Lyme IgG 66 kDa Band Lyme IgG 93 kDa Band Lyme IgM Ab (WB) Lyme Disease IgM Ab Equivocal A Lyme IgM 23 kDa Band Lyme IgM 39 kDa Band Lyme IgM 41 kDa Band Influenza Type A (PCR) Influenza Type B (PCR) 03/12/20 03/12/20 03/12/20 16:15 16:15 16:15 WBC RBC Hgb Hct MCV MCH MCHC RDW Std Deviation RDW Coeff of Lola Plt Count MPV Immature Gran % (Auto) Neut % (Auto) Lymph % (Auto) [place] % (Auto) Eos % (Auto) Baso % (Auto) Immature Gran # (Auto) Neut # (Auto) Lymph # (Auto) [place] # (Auto) Eos # (Auto) Baso # (Auto) D-Dimer Sodium Potassium Chloride Carbon Dioxide Anion Gap BUN Creatinine Est Cr Clr Drug Dosing Est GFR ( Amer) Est GFR (Non-Af Amer) BUN/Creatinine Ratio Glucose Calcium Phosphorus Magnesium Total Bilirubin AST ALT Alkaline Phosphatase Troponin I Total Protein Albumin Globulin Albumin/Globulin Ratio Lipase Whole Bld Vitamin B1 Cancelled Pending Vitamin B12 TSH Epineph & Norepi Total Urine Color Urine Appearance Urine pH Ur Specific [place] Urine Protein Urine Glucose (UA) Urine Ketones Urine Blood Urine Nitrite Urine Bilirubin Urine Urobilinogen Ur Leukocyte Esterase Ur 24 Hour Volume Ur Epinephrine 24 Hr U Norepinephrine 24 Hr Ur Dopamine 24 Hr Urine Creatinine Lyme Disease IgG Ab Lyme IgG (Western Blot) Pending Lyme IgG 18 kDa Band Pending Lyme IgG 23 kDa Band Pending Lyme IgG 28 kDa Band Pending Lyme IgG 30 kDa Band Pending Lyme IgG 39 kDa Band Pending Lyme IgG 41 kDa Band Pending Lyme IgG 45 kDa Band Pending Lyme IgG 58 kDa Band Pending Lyme IgG 66 kDa Band Pending Lyme IgG 93 kDa Band Pending Lyme IgM Ab (WB) Pending Lyme Disease IgM Ab Lyme IgM 23 kDa Band Pending Lyme IgM 39 kDa Band Pending Lyme IgM 41 kDa Band Pending Influenza Type A (PCR) Influenza Type B (PCR) 12/03/19 12/04/19 12/04/19 16:30 07:22 07:22 WBC 3.38 L RBC 4.35 Hgb 14.5 Hct 41.3 MCV 94.9 MCH 33.3 MCHC 35.1 RDW Std Deviation 43.1 RDW Coeff of Lola 12.5 Plt Count 216 MPV 10.2 Immature Gran % (Auto) 0.0 Neut % (Auto) 55.3 Lymph % (Auto) 34.3 [place] % (Auto) 8.0 Eos % (Auto) 1.5 Baso % (Auto) 0.9 Immature Gran # (Auto) 0.00 Neut # (Auto) 1.87 Lymph # (Auto) 1.16 L [place] # (Auto) 0.27 Eos # (Auto) 0.05 Baso # (Auto) 0.03 D-Dimer Sodium 140 D Potassium 3.5 Chloride 108 H Carbon Dioxide 27 Anion Gap 6.0 BUN 12 Creatinine 0.75 Est Cr Clr Drug Dosing 80.8 Est GFR ( Amer) 101.1 Est GFR (Non-Af Amer) 87.2 BUN/Creatinine Ratio 16.1 Glucose 102 H Calcium 9.4 Phosphorus 3.6 Magnesium 2.1 Total Bilirubin AST ALT Alkaline Phosphatase Troponin I Total Protein Albumin Globulin Albumin/Globulin Ratio Lipase Whole Bld Vitamin B1 Vitamin B12 TSH Epineph & Norepi Total Cancelled Urine Color Urine Appearance Urine pH Ur Specific [place] Urine Protein Urine Glucose (UA) Urine Ketones Urine Blood Urine Nitrite Urine Bilirubin Urine Urobilinogen Ur Leukocyte Esterase Ur 24 Hour Volume Cancelled Ur Epinephrine 24 Hr Cancelled U Norepinephrine 24 Hr Cancelled Ur Dopamine 24 Hr Cancelled Urine Creatinine Cancelled Lyme Disease IgG Ab Lyme IgG (Western Blot) Lyme IgG 18 kDa Band Lyme IgG 23 kDa Band Lyme IgG 28 kDa Band Lyme IgG 30 kDa Band Lyme IgG 39 kDa Band Lyme IgG 41 kDa Band Lyme IgG 45 kDa Band Lyme IgG 58 kDa Band Lyme IgG 66 kDa Band Lyme IgG 93 kDa Band Lyme IgM Ab (WB) Lyme Disease IgM Ab Lyme IgM 23 kDa Band Lyme IgM 39 kDa Band Lyme IgM 41 kDa Band Influenza Type A (PCR) Influenza Type B (PCR) 12/04/19 07:22 WBC RBC Hgb Hct MCV MCH MCHC RDW Std Deviation RDW Coeff of Lola Plt Count MPV Immature Gran % (Auto) Neut % (Auto) Lymph % (Auto) [place] % (Auto) Eos % (Auto) Baso % (Auto) Immature Gran # (Auto) Neut # (Auto) Lymph # (Auto) [place] # (Auto) Eos # (Auto) Baso # (Auto) D-Dimer Sodium Potassium Chloride Carbon Dioxide Anion Gap BUN Creatinine Est Cr Clr Drug Dosing Est GFR ( Amer) Est GFR (Non-Af Amer) BUN/Creatinine Ratio Glucose Calcium Phosphorus Magnesium Total Bilirubin AST ALT Alkaline Phosphatase Troponin I Total Protein Albumin Globulin Albumin/Globulin Ratio Lipase Whole Bld Vitamin B1 Vitamin B12 809 TSH Epineph & Norepi Total Urine Color Urine Appearance Urine pH Ur Specific [place] Urine Protein Urine Glucose (UA) Urine Ketones Urine Blood Urine Nitrite Urine Bilirubin Urine Urobilinogen Ur Leukocyte Esterase Ur 24 Hour Volume Ur Epinephrine 24 Hr U Norepinephrine 24 Hr Ur Dopamine 24 Hr Urine Creatinine Lyme Disease IgG Ab Lyme IgG (Western Blot) Lyme IgG 18 kDa Band Lyme IgG 23 kDa Band Lyme IgG 28 kDa Band Lyme IgG 30 kDa Band Lyme IgG 39 kDa Band Lyme IgG 41 kDa Band Lyme IgG 45 kDa Band Lyme IgG 58 kDa Band Lyme IgG 66 kDa Band Lyme IgG 93 kDa Band Lyme IgM Ab (WB) Lyme Disease IgM Ab Lyme IgM 23 kDa Band Lyme IgM 39 kDa Band Lyme IgM 41 kDa Band Influenza Type A (PCR) Influenza Type B (PCR) PG Care Time/CCT Total # of Minutes Spent Total Time Spent with Patient: Total time spent is greater than 50% in coordination of care (as documented) at patient's floor/unit and/or counseling patient: Coding Level of Care Code 46795 Inpt Consult Level 5 Diagnoses HTN (hypertension) I10 Hypertension type: unspecified Hypokalemia E87.6 SVT (supraventricular tachycardia) I47.1 Fatigue R53.83 Fatigue type: unspecified (1) HTN (hypertension) Hypertension type: unspecified Qualified Code(s): I10 - Essential (primary) hypertension (2) Fatigue Fatigue type: unspecified Qualified Code(s): R53.83 - Other fatigue
--- NOTE | 2019-12-04 14:51 | Ultrasound Report ---
DOPPLER ULTRASOUND OF THE RENAL ARTERIES CLINICAL HISTORY: Atrophic kidney. Paroxysmal hypertension. COMPARISON STUDY: Renal ultrasound performed concurrently on 12/04/2019. MR angiogram of the abdomen d ated 06/05/2012. TECHNIQUE: Doppler sonography of the renal arteries was performed to assess renal artery stenosis. Im ages are reviewed in the transverse and longitudinal planes. FINDINGS: The right kidney is diminutive as compared to left. Both kidneys demonstrate normal cortical thicknes s and echotexture. The right kidney measures 7.8 cm in length and the left kidney measures 11.9 cm in length. No hydronephrosis is identified. On the right, intrarenal arterial resistive indices range from 0.62 to 0.72. Intrarenal arterial wave forms are normal with brisk upstrokes. The right renal arterial waveform is normal, and velocities wi thin the right renal artery measure up to 131 cm/sec. The right renal vein is patent. On the left, intrarenal arterial resistive indices range from 0.58 to 0.65. Intrarenal arterial wave forms are normal with brisk upstrokes. The left renal arterial waveform is normal, and velocities wit hin the left renal artery measure up to 82 cm/sec. The left renal vein is patent. The abdominal aorta is patent. Velocities within the abdominal aorta measure up to 95 cm/s. Upper abdomen: Cholelithiasis is incidentally noted. IMPRESSION: 1. There is no sonographic evidence of renal artery stenosis. 2. The left kidney is larger than the right kidney. ACT 112: Negative or not required by law. Electronically signed by: Tani Shetty M.D. 12/04/2019 2:49 PM
--- NOTE | 2019-12-04 14:56 | Ultrasound Report ---
US renal/blad retro comp HISTORY: Renal atrophy h/o renal atrophy COMPARISON: None. FINDINGS: Right kidney: Maximum dimension 7.8 cm. No evidence for hydronephrosis Normal corticomedullary differ entiation and cortical thickness. 8 mm upper pole cyst Left kidney: Maximum dose 12 cm. No evidence for hydronephrosis. Normal corticomedullary differentia tion and cortical thickness. Bladder: No bladder wall thickening. The bilateral ureteral jets were identified. IMPRESSION: 1. Mild atrophy right kidney with a maximum dimension of 7.8 cm. 2. Normal left kidney. 3. No evidence for hydronephrosis. ACT 112: Negative or not required by law. The above report was generated using voice recognition software. It may contain grammatical, syntax or spelling errors. Electronically signed by: Esequiel Duvall M.D. 12/04/2019 2:55 PM
[2019-12-04] MEDS: SODIUM CHLORIDE 0.9% 500 ML IV SCH ×2 (17:33→23:46)
[2019-12-04] MEDS ORDERED: OPTIRAY 320 125ml IV PRN (18:05)
--- NOTE | 2019-12-04 18:33 | Hospitalist Progress Note ---
Date of Service December 04, 2019 Assessment & Plan (1) Fatigue: Extensive w/u to date negative. Mild leukopenia is chronic per patient. Lyme IgM is equivocal - significance is uncertain, but even if Lyme is truly present, her current symptoms are not c/w Lyme. 24 hour urine catecholamines have been ordered by Dr Benitez given her episodes of palpitations, headaches, marked hypertensive episodes, etc. Obtain echo given prior h/o SVT, palpitations, etc. Check sed rate/crp in am. (2) Hypokalemia: replaced and improved bmp in am ?hyperaldo state? other? check renin/jailyn levels in am (3) SVT (supraventricular tachycardia): EKG WNL at admission TSH wnl K level now normal mag level wnl check echo 24-hour urine collection for metanephrines pending if w/u from this stay remains negative will advise outpatient 30-day event monitor (4) HTN (hypertension): continue amlodipine 24-hour urine collection for metanephrines pending renal artery dopplers wnl ruling out FLYNN renin/jailyn levels in am check cortisol in am TSH wnl (5) DVT prophylaxis: SCDs and ambulation; low risk updated at bedside questions answered Admission and Anticipated Discharge Date Admission Date: December 03, 2019 Anticipated date of discharge: 12/05/19 Subjective patient reports that her mild leukopenia has been present for several years. she often runs 2-3. reports very discrete episodes of severe headache, palpitations, extreme weakness/fatigue. the symptoms can last for a few days then finally resolve. she does feel dizzy at times during episodes. with respect to former SVT episodes - she can tell when they occur. the episodes of sinus tach she has had at [facility] feel different than her SVT. she reports no rashes, no weight loss, no appetite loss. no synovitis or myalgias. at bedside. Review of Systems Constitutional: no fever and no chills Respiratory: no cough and no dyspnea Cardiovascular: + palpitations; no chest pain Gastrointestinal: no abdominal pain, no nausea and no vomiting Physical Exam Constitutional: well developed and well nourished; no acute distress and no altered mental status ENMT: external ear and nose normal, oropharynx normal Respiratory: normal respiratory effort, lungs clear to auscultation Cardiovascular: Rate/Rhythm: regular rate and regular rhythm Heart Sounds: normal S1 and normal S2; no murmur Vessels: posterior tibial pulses present and dorsalis pedis pulses present; no JVD Extremities: no edema Gastrointestinal (Abdomen): normal bowel sounds, soft, nontender, no hepatosplenomegaly Musculoskeletal: no cyanosis or clubbing, extremities motor strength 5/5 no synovitis of any joint Skin: no rashes, warm and dry Psychiatric: A+Ox3, euthymic affect Results & Data ([facility]) Vital Signs (Past 12 Hours) Vital Signs Temp Pulse Pulse Resp BP Pulse Ox 12/04/19 15:52 36.7 C 73 18 142/87 H 100 12/04/19 11:51 36.5 C 74 16 145/88 H 96 12/04/19 10:32 65 12/04/19 10:24 76 168/97 H 12/04/19 09:21 36.4 C L 76 18 166/95 H 100 12/04/19 07:55 36.8 C 66 16 124/66 95 Laboratory Results Laboratory Results - last 24 hr 12/04/19 12/04/19 12/04/19 07:22 07:22 07:22 WBC 3.38 L RBC 4.35 Hgb 14.5 Hct 41.3 MCV 94.9 MCH 33.3 MCHC 35.1 RDW Std Deviation 43.1 RDW Coeff of Lola 12.5 Plt Count 216 MPV 10.2 Immature Gran % (Auto) 0.0 Neut % (Auto) 55.3 Lymph % (Auto) 34.3 [place] % (Auto) 8.0 Eos % (Auto) 1.5 Baso % (Auto) 0.9 Immature Gran # (Auto) 0.00 Neut # (Auto) 1.87 Lymph # (Auto) 1.16 L [place] # (Auto) 0.27 Eos # (Auto) 0.05 Baso # (Auto) 0.03 Sodium 140 D Potassium 3.5 Chloride 108 H Carbon Dioxide 27 Anion Gap 6.0 BUN 12 Creatinine 0.75 Est Cr Clr Drug Dosing 80.8 Est GFR ( Amer) 101.1 Est GFR (Non-Af Amer) 87.2 BUN/Creatinine Ratio 16.1 Glucose 102 H Calcium 9.4 Phosphorus 3.6 Magnesium 2.1 Vitamin B12 809 Epineph & Norepi Total Ur 24 Hour Volume Ur Epinephrine 24 Hr U Norepinephrine 24 Hr Ur Dopamine 24 Hr Urine Creatinine 12/04/19 17:30 WBC RBC Hgb Hct MCV MCH MCHC RDW Std Deviation RDW Coeff of Lola Plt Count MPV Immature Gran % (Auto) Neut % (Auto) Lymph % (Auto) [place] % (Auto) Eos % (Auto) Baso % (Auto) Immature Gran # (Auto) Neut # (Auto) Lymph # (Auto) [place] # (Auto) Eos # (Auto) Baso # (Auto) Sodium Potassium Chloride Carbon Dioxide Anion Gap BUN Creatinine Est Cr Clr Drug Dosing Est GFR ( Amer) Est GFR (Non-Af Amer) BUN/Creatinine Ratio Glucose Calcium Phosphorus Magnesium Vitamin B12 Epineph & Norepi Total Pending Ur 24 Hour Volume Pending Ur Epinephrine 24 Hr Pending U Norepinephrine 24 Hr Pending Ur Dopamine 24 Hr Pending Urine Creatinine Pending PG Care Time/CCT Total # of Minutes Spent Total Time Spent with Patient: Total time spent is greater than 50% in coordination of care (as documented) at patient's floor/unit and/or counseling patient: Coding Level of Care Code 23765 Subseq Obs Care Lvl 2 Diagnoses Fatigue R53.83 Fatigue type: unspecified Hypokalemia E87.6 SVT (supraventricular tachycardia) I47.1 HTN (hypertension) I10 Hypertension type: unspecified DVT prophylaxis Z29.9 (1) Fatigue Fatigue type: unspecified Qualified Code(s): R53.83 - Other fatigue (2) HTN (hypertension) Hypertension type: unspecified Qualified Code(s): I10 - Essential (primary) hypertension
--- NOTE | 2019-12-04 19:20 | CT Scan Report ---
CT angio abdomen w con CT DOSE: 162.15 mGy.cm CLINICAL HISTORY: R renal atrophy, HTN, fibromuscular dysplasia? TECHNIQUE: CT angiography was performed in a dynamic helical fashion during intravenous administratio n of 117 cc of Optiray 320. MIP images were acquired. A dose lowering technique was utilized adherin g to the principles of ALARA. COMPARISON STUDY: Renal ultrasound dated 12/04/2019 FINDINGS: Lung bases are unremarkable in appearance. No hepatic masses are visualized in this arterial phase study. There are several tiny hepatic calcifi cations, likely postinflammatory. There is cholelithiasis. Spleen appears normal. The pancreas appears normal. There is a prominent left gonadal vein. There is no evidence of abdominal aortic aneurysm. There is no evidence for celiac or superior mesenteric artery stenosis. No adrenal masses are visualized. There is no evidence of renal artery stenosis. There is equivocal subtle beading of the right renal artery. No bleeding of the left renal artery is visualized.. The left kidney measures 11.2 cm in length. The right kidney demonstrates lower pole cor tical scarring and measures 7.9 cm in length. There is a 7 mm upper pole right renal cyst. IMPRESSION: 1. No evidence of renal artery stenosis 2. Small right kidney measuring 7.9 cm in length with lower pole renal cortical scarring 3. Equivocal subtle beading of the right renal artery. The findings are too subtle to be considered d iagnostic of fibromuscular dysplasia ACT 112: Negative or not required by law. Electronically signed by: Santiago Vick M.D. 12/04/2019 7:19 PM
[2019-12-04] MEDS: AMLODIPINE BESYLATE 5 MG TAB PO SCH (20:47)
[2019-12-05 07:58] LABS: Albumin Level 3.8 gm/dl (3.4-5.0); BUN Creatinine Ratio 15.1 (10-20); Calcium 8.9 mg/dl (8.5-10.1); Creatinine Clr Calc Pharmacy 75.1 ml/min; Est GFR (African American) 92.1; Est GFR (Non-African American) 79.5; Potassium 3.3 mmol/L (3.5-5.1)
[2019-12-05 08:00] LABS: Albumin Globulin Ratio 1.1 (0.9-2); Bilirubin,Total 0.7 mg/dl (0.2-1); Globulin 3.5 gm/dl (2.5-4.0); Total Protein 7.3 gm/dl (6.4-8.2)
[2019-12-05] MEDS ORDERED: POTASSIUM CHLORIDE 20 MEQ TABCR PO STA (08:06)
--- NOTE | 2019-12-05 13:32 | Nephrology Progress Note ---
Date of Service December 05, 2019 Assessment & Plan (1) HTN (hypertension): -- Age of onset, paroxysmal nature, hypokalemia/metabolic alkalosis and h/o R renal atrophy are concerning for secondary cause -- TSH is normal. Cortisol was at upper limit of normal -- 24 hour urine catecholamines pending -- Preserved kidney function w/ acellular urine sediment. 2011 pelvic US revealed R renal atrophy -- Renal artery doppler negative for FLYNN -- CTA abdomen: no adrenal mass. 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 Conn was seen & examined in her hospital room this morning. Blood pressure has been controlled over night. No further LOPEZ or palpitations. Primary concern is fatigue and polyuria. Review of Systems Constitutional: + weakness; no fever Eyes: no worsening vision and no problem reported Ear, Nose, Mouth, Throat: no problem reported Respiratory: no cough and no dyspnea Cardiovascular: no chest pain, no palpitations and no edema Gastrointestinal: no abdominal pain, no nausea, no vomiting and no diarrhea/loose stools Genitourinary: + problem reported (polyuria); no dysuria and no hematuria Musculoskeletal: no back pain Integumentary: no rash Neurologic: no falls, no dizziness and no confusion Physical Exam Constitutional: healthy appearing; not in distress Eyes: PERRL, conjunctivae normal, anicteric sclerae ENMT: external ear and nose normal, oropharynx normal Neck: trachea midline, no thyromegaly Respiratory: normal respiratory effort, lungs clear to auscultation Cardiovascular: RRR, no murmur, no edema Gastrointestinal (Abdomen): normal bowel sounds, soft, nontender, no hepatosplenomegaly Musculoskeletal: Extremities: no cyanosis and no clubbing Skin: no rashes, warm and dry Neurologic: awake; not confused Results & Data Vital Signs (Past 12 Hours) Vital Signs Temp Pulse Pulse Resp BP Pulse Ox 12/05/19 08:00 36.8 C 60 18 124/74 99 12/05/19 07:20 63 12/05/19 02:56 36.6 C 60 16 133/82 98 Laboratory Results Laboratory Tests 12/03/19 12/04/19 12/05/19 11:45 17:30 07:08 Sodium Potassium Chloride Carbon Dioxide BUN Creatinine Glucose Calcium Albumin Renin Activity Aldosterone Cortisol AM Sample 22.95 H Epineph & Norepi Total Pending Urine Color Yellow Urine Appearance Clear Urine pH 8.0 H Ur Specific Mead 1.010 Urine Protein Negative Urine Glucose (UA) Negative Urine Ketones Negative Urine Blood Negative Urine Nitrite Negative Urine Bilirubin Negative Urine Urobilinogen Negative Ur Leukocyte Esterase Negative Urine Osmolality Ur Random Creatinine Ur Random Potassium Ur Epinephrine 24 Hr Pending U Norepinephrine 24 Hr Pending 12/05/19 12/05/19 12/05/19 07:08 07:08 10:45 Sodium 138 Potassium 3.3 L Chloride 105 Carbon Dioxide 29 BUN 12 Creatinine 0.81 Glucose 100 H Calcium 8.9 Albumin 3.8 Renin Activity Pending Aldosterone Pending Cortisol AM Sample Epineph & Norepi Total Urine Color Urine Appearance Urine pH Ur Specific Mead Urine Protein Urine Glucose (UA) Urine Ketones Urine Blood Urine Nitrite Urine Bilirubin Urine Urobilinogen Ur Leukocyte Esterase Urine Osmolality Ur Random Creatinine < 13.0 Ur Random Potassium Ur Epinephrine 24 Hr U Norepinephrine 24 Hr 12/05/19 12/05/19 10:45 10:45 Sodium Potassium Chloride Carbon Dioxide BUN Creatinine Glucose Calcium Albumin Renin Activity Aldosterone Cortisol AM Sample Epineph & Norepi Total Urine Color Urine Appearance Urine pH Ur Specific Mead Urine Protein Urine Glucose (UA) Urine Ketones Urine Blood Urine Nitrite Urine Bilirubin Urine Urobilinogen Ur Leukocyte Esterase Urine Osmolality 113 L Ur Random Creatinine Ur Random Potassium 7.7 Ur Epinephrine 24 Hr U Norepinephrine 24 Hr ABDOMINAL CTA 12/04/19: 1. No evidence of renal artery stenosis 2. Small right kidney measuring 7.9 cm in length with lower pole renal cortical scarring 3. Equivocal subtle beading of the right renal artery. The findings are too subtle to be considered diagnostic of fibromuscular dysplasia PG Care Time/CCT Total # of Minutes Spent Total Time Spent with Patient: Total time spent is greater than 50% in coordination of care (as documented) at patient's floor/unit and/or counseling patient: Coding Level of Care Code 42366 Subseq Hosp Care Lvl 3 Diagnoses HTN (hypertension) I10 Hypertension type: unspecified Hypokalemia E87.6 Polyuria R35.8 SVT (supraventricular tachycardia) I47.1 Fatigue R53.83 Fatigue type: unspecified (1) HTN (hypertension) Hypertension type: unspecified Qualified Code(s): I10 - Essential (primary) hypertension (2) Fatigue Fatigue type: unspecified Qualified Code(s): R53.83 - Other fatigue
--- NOTE | 2019-12-05 17:21 | XCELERA ---
[id number] \\[email or web address]\[id number]_[email or web address]\[id number]
--- NOTE | 2019-12-05 19:54 | Hospitalist Progress Note ---
Date of Service December 05, 2019 Assessment & Plan (1) Fatigue: Extensive w/u to date negative. Mild leukopenia is chronic per patient. Lyme IgM is equivocal - significance is uncertain, but even if Lyme is truly present, her current symptoms are not c/w Lyme. 24 hour urine catecholamines have been collected and sent. Pheochromocytoma needs to be ruled out due to episodes of palpitations, headaches, marked hypertensive episodes, etc. Echo today is normal with normal EF & valve function. Sed rate/crp both wnl. TSH wnl. cortisol wnl. (2) Hypokalemia: replaced and improved, now low again give additional supplementation bmp in am ?hyperaldo state? renin/jailyn levels pending while awaiting results -- Dr Benitez to start 12.5mg daily of aldactone stop norvasc (3) Postural orthostatic tachycardia syndrome: Could patient have a "POTS" like condition/autonomic insufficiency? Although her BP only dropped about 15 pts with standing her HR went up 35 BPM w/ standing. She has frequent episodes of tachycardia brought on by minimal movement. Consider cardiology consultation. (4) HTN (hypertension): stop amlodipine starting aldactone due to persistent hypokalemia and while awaiting renin/jailyn levels 24-hour urine collection for metanephrines completed renal artery dopplers wnl ruling out FLYNN cortisol wnl TSH wnl BPs overall improved today (5) SVT (supraventricular tachycardia): no SVT while hospitalized patient states she has h/o such EKG WNL at admission echo wnl 24-hour urine collection for metanephrines pending due to episodes of tachycardia/headache/etc at home consider formal cardiac eval this admission - see above in "POTS" consider event monitor after discharge to rule out episodes of SVT or other arrhythmia (6) Polyuria: Dr Benitez recommended water deprivation test to assess concentrating ability of kidneys will restrict fluids for 8 hours, then check Urine Osm re-eval in am (7) DVT prophylaxis: SCDs and ambulation; low risk change observation status to admission status due to persistent hypokalemia, need for water deprivation test, etc Admission and Anticipated Discharge Date Admission Date: December 05, 2019 Anticipated date of discharge: 12/06/19 Subjective patient feeling "much better" today no dizziness only mild frontal headache appetite normal no palpitations although on tele she has had multiple runs of sinus tachycardia tele has not shown SVT however no new complaints Review of Systems Constitutional: no fever, no chills, no fatigue and no anorexia Respiratory: no cough, no dyspnea and no dyspnea on exertion Cardiovascular: no chest pain, no lightheadedness, no syncope and no edema Gastrointestinal: no abdominal pain, no nausea and no vomiting Physical Exam Constitutional: well developed and well nourished; no acute distress and no altered mental status ENMT: external ear and nose normal, oropharynx normal Respiratory: normal respiratory effort, lungs clear to auscultation Cardiovascular: Rate/Rhythm: regular rate and regular rhythm Heart Sounds: normal S1 and normal S2; no murmur Vessels: posterior tibial pulses present and dorsalis pedis pulses present; no JVD Extremities: no edema Gastrointestinal (Abdomen): normal bowel sounds, soft, nontender, no hepatosplenomegaly Psychiatric: A+Ox3, euthymic affect Results & Data ([facility]) Vital Signs (Past 12 Hours) Vital Signs Temp Pulse Pulse Resp BP Pulse Ox 12/05/19 19:00 36.4 C L 77 20 120/82 98 12/05/19 15:44 36.6 C 74 18 125/82 99 12/05/19 14:20 86 12/05/19 08:00 36.8 C 60 18 124/74 99 Laboratory Results Laboratory Results - last 24 hr 12/05/19 12/05/19 12/05/19 07:08 07:08 07:08 ESR Sodium 138 Potassium 3.3 L Chloride 105 Carbon Dioxide 29 Anion Gap 4.0 BUN 12 Creatinine 0.81 Est Cr Clr Drug Dosing 75.1 Est GFR ( Amer) 92.1 Est GFR (Non-Af Amer) 79.5 BUN/Creatinine Ratio 15.1 Glucose 100 H Osmolality Calcium 8.9 Total Bilirubin 0.7 AST 15 ALT 22 Alkaline Phosphatase 67 C-Reactive Protein Total Protein 7.3 Albumin 3.8 Globulin 3.5 Albumin/Globulin Ratio 1.1 Renin Activity Pending Aldosterone Pending Cortisol AM Sample 22.95 H Urine Osmolality Ur Random Creatinine Ur Random Potassium 12/05/19 12/05/19 12/05/19 07:08 07:08 10:45 ESR 13 Sodium Potassium Chloride Carbon Dioxide Anion Gap BUN Creatinine Est Cr Clr Drug Dosing Est GFR ( Amer) Est GFR (Non-Af Amer) BUN/Creatinine Ratio Glucose Osmolality Calcium Total Bilirubin AST ALT Alkaline Phosphatase C-Reactive Protein < 0.29 Total Protein Albumin Globulin Albumin/Globulin Ratio Renin Activity Aldosterone Cortisol AM Sample Urine Osmolality Ur Random Creatinine < 13.0 Ur Random Potassium 12/05/19 12/05/19 12/05/19 10:45 10:45 11:02 ESR Sodium Potassium Chloride Carbon Dioxide Anion Gap BUN Creatinine Est Cr Clr Drug Dosing Est GFR ( Amer) Est GFR (Non-Af Amer) BUN/Creatinine Ratio Glucose Osmolality 291 Calcium Total Bilirubin AST ALT Alkaline Phosphatase C-Reactive Protein Total Protein Albumin Globulin Albumin/Globulin Ratio Renin Activity Aldosterone Cortisol AM Sample Urine Osmolality 113 L Ur Random Creatinine Ur Random Potassium 7.7 12/05/19 12/05/19 19:00 19:02 ESR Sodium Potassium Chloride Carbon Dioxide Anion Gap BUN Creatinine Est Cr Clr Drug Dosing Est GFR ( Amer) Est GFR (Non-Af Amer) BUN/Creatinine Ratio Glucose Osmolality 299 Calcium Total Bilirubin AST ALT Alkaline Phosphatase C-Reactive Protein Total Protein Albumin Globulin Albumin/Globulin Ratio Renin Activity Aldosterone Cortisol AM Sample Urine Osmolality 716 Ur Random Creatinine Ur Random Potassium PG Care Time/CCT Total # of Minutes Spent Total Time Spent with Patient: Total time spent is greater than 50% in coordination of care (as documented) at patient's floor/unit and/or counseling patient: Coding Level of Care Code 92179 Subseq Hosp Care Lvl 2 Diagnoses Fatigue R53.83 Fatigue type: unspecified Hypokalemia E87.6 Postural orthostatic tachycardia syndrome I49.8 HTN (hypertension) I10 Hypertension type: unspecified SVT (supraventricular tachycardia) I47.1 Polyuria R35.8 DVT prophylaxis Z29.9 (1) Fatigue Fatigue type: unspecified Qualified Code(s): R53.83 - Other fatigue (2) HTN (hypertension) Hypertension type: unspecified Qualified Code(s): I10 - Essential (primary) hypertension
[2019-12-06 06:51] LABS: Calcium 9.4 mg/dl (8.5-10.1); Creatinine Clr Calc Pharmacy 82.2 ml/min; Est GFR (African American) 102.8; Est GFR (Non-African American) 88.7; Potassium 3.9 mmol/L (3.5-5.1)
[2019-12-06] MEDS ORDERED: SPIRONOLACTONE 12.5 MG TAB PO ONE (10:00)
--- NOTE | 2019-12-06 10:05 | Nephrology Progress Note ---
Date of Service December 06, 2019 Assessment & Plan (1) HTN (hypertension): -- Age of onset, paroxysmal nature, hypokalemia/metabolic alkalosis and h/o R renal atrophy are concerning for secondary cause -- TSH is normal. Cortisol was at upper limit of normal -- 24 hour urine catecholamines, renin/aldosterone pending -- Preserved kidney function w/ acellular urine sediment. 2011 pelvic US revealed R renal atrophy -- Renal artery doppler negative for FLYNN -- CTA abdomen: no adrenal mass. Study considered negative for FMD -- Suspect R renal atrophy was a congenital abnormality -- Start Spironolactone 12.5 mg daily -- I have placed order in office EMR to have staff appraiser schedule patient follow up visit in my office in 10 - 14 days following hospital discharge. Orders were also placed for nonfasting blood work to be completed 24 hours prior to OV (2) Hypokalemia: -- Mg within normal limits -- Serum K within normal limits this am -- Start Spironolactone 12.5 mg daily (3) Polyuria: -- 8 hour free water restriction completed yesterday -- Urine osmolality appropriately increased from 113 to 716 mOsm/kg. UO also appropriately dropped (4) SVT (supraventricular tachycardia): -- On telemetry to monitor rhythm -- Cardiology to evaluate for POTS (postural orthostatic tachycardia syndrome) (5) Fatigue: Subjective Mrs. Conn was seen & examined in her hospital room this morning. Blood pressure elevated this morning. Patient has not yet started Spironolactone. She did fluid restrict for 8 hours yesterday and noted that her UO appropriately decreased Review of Systems Constitutional: + weakness; no fever Eyes: no worsening vision and no problem reported Ear, Nose, Mouth, Throat: no problem reported Respiratory: no cough and no dyspnea Cardiovascular: no chest pain, no palpitations and no edema Gastrointestinal: no abdominal pain, no nausea, no vomiting and no diarrhea/loose stools Genitourinary: + problem reported (polyuria); no dysuria and no hematuria Musculoskeletal: no back pain Integumentary: no rash Neurologic: no falls, no dizziness and no confusion Physical Exam Constitutional: healthy appearing; not in distress Eyes: PERRL, conjunctivae normal, anicteric sclerae ENMT: external ear and nose normal, oropharynx normal Neck: trachea midline, no thyromegaly Respiratory: normal respiratory effort, lungs clear to auscultation Cardiovascular: RRR, no murmur, no edema Gastrointestinal (Abdomen): normal bowel sounds, soft, nontender, no hepatosplenomegaly Musculoskeletal: Extremities: no cyanosis and no clubbing Skin: no rashes, warm and dry Neurologic: awake; not confused Results & Data Vital Signs (Past 12 Hours) Vital Signs Temp Pulse Pulse Resp BP Pulse Ox 12/06/19 08:00 60 12/06/19 07:40 114 H 135/86 12/06/19 07:39 101 H 144/93 H 12/06/19 07:37 67 156/92 H 12/06/19 03:32 36.5 C 60 16 147/88 H 99 12/05/19 22:53 36.5 C 60 16 126/76 98 Laboratory Results Laboratory Tests 12/05/19 12/05/19 12/06/19 10:45 19:00 05:56 Sodium 143 Potassium 3.9 D Chloride 108 H Carbon Dioxide 30 BUN 17 Creatinine 0.74 Glucose 99 Urine Osmolality 113 L 716 PG Care Time/CCT Total # of Minutes Spent Total Time Spent with Patient: Total time spent is greater than 50% in coordination of care (as documented) at patient's floor/unit and/or counseling patient: Coding Level of Care Code 52681 Subseq Hosp Care Lvl 3 Diagnoses HTN (hypertension) I10 Hypertension type: unspecified Hypokalemia E87.6 Polyuria R35.8 SVT (supraventricular tachycardia) I47.1 Fatigue R53.83 Fatigue type: unspecified (1) HTN (hypertension) Hypertension type: unspecified Qualified Code(s): I10 - Essential (primary) hypertension (2) Fatigue Fatigue type: unspecified Qualified Code(s): R53.83 - Other fatigue
--- NOTE | 2019-12-06 13:12 | Discharge Summary ---
Date of Service date of admission - December 03, 2019 date of discharge - December 06, 2019 Admission HPI Per Admitting Provider 59 y/o F c/o malaise and fatigue. Pt states that she started to have fatigue around July. She had some episodes of exercise intolerance to walking and treadmill running, but other times she would feel this was WNL. Over the last 1.5-2 months, pt has had 3 episodes of feeling quite unwell. She would have intense fatigue, headache, nausea w/o emesis, chills, malaise, inability to sleep, and tachycardia. She has hx of SVT and would feel palpitations with a HR in the 160s and her BP would be elevated. This would last for about 2-3 days and then she would have feel slightly improved but still unwell for about 4-5 days, and then return to normal for 2-3 weeks until a repeat episode. She has felt like this since yesterday. With the first two episodes, she had diarrhea, but no diarrhea with the current episode. Pt went to work yesterday and felt so unwell that she had to come home. She does feel lightheaded when she feels her SVT, but not outside of this. It was noted in triage that pt's HR was in the 160s. Pt was seen by PCP for this prior and a stress ECHO was ordered, however it was denied by insurance. She called today to be seen after leaving work yesterday. Labs were requested prior to the visit, however pt felt too fatigued to go to the lab, so they came to the ED instead. Pt states that she has been eating a high potassium diet recently in an effort to feel better, but no K supplements. She has been focusing on fruits and vegetables with higher K amounts. This has not helped. Pt states her usual BP in 125/70 or less and she does check fairly often due to HTN hx. Pt denies fever, SOB, chest pain, abd pain, LE pain or swelling. No urinary sx. She has been able to eat without issue, even when nauseated. Principal Diagnosis 1. autonomic insufficiency 2. SVT Discharge Exam Constitutional well developed and well nourished; no acute distress and no altered mental status ENMT external ear and nose normal, oropharynx normal Respiratory normal respiratory effort, lungs clear to auscultation Cardiovascular Rate/Rhythm: regular rate and regular rhythm Heart Sounds: normal S1 and normal S2; no murmur Vessels: posterior tibial pulses present and dorsalis pedis pulses present; no JVD Extremities: no edema Gastrointestinal (Abdomen) normal bowel sounds, soft, nontender, no hepatosplenomegaly Musculoskeletal no cyanosis or clubbing, extremities motor strength 5/5 Skin no rashes, warm and dry Psychiatric A+Ox3, euthymic affect Discharge Data Allergies Allergy/AdvReac Type Severity Reaction Status Date / Time cat dander Allergy Severe SHORTNESS Verified 12/03/19 13:32 OF BREATH amoxicillin Allergy Verified 12/03/19 13:32 ampicillin Allergy Verified 12/03/19 13:32 Consultations [facility] [place] - Adebayo Benitez MD [facility] Cardiology - Chapo Ruffin MD Ordered Studies 12/03/19 11:40 CT head/brain wo con Stat 12/04/19 14:30 US duplex renal artery Routine -no renal artery stenosis US renal/blad retro comp Routine 12/04/19 16:34 CT angio abdomen w con Routine IMPRESSION: 1. No evidence of renal artery stenosis 2. Small right kidney measuring 7.9 cm in length with lower pole renal cortical scarring 3. Equivocal subtle beading of the right renal artery. The findings are too subtle to be considered diagnostic of fibromuscular dysplasia echocardiogram - * normal EF * normal valve function Hospital Course (1) Fatigue: Presented with episodes of fatigue lasting days. Extensive w/u to date negative. Mild leukopenia is chronic per patient. Lyme IgM is equivocal - significance of such uncertain, but even if Lyme is truly present, her current symptoms are not c/w Lyme. 24 hour urine catecholamines were collected and sent. Pheochromocytoma needs to be ruled out due to episodes of palpitations, headaches, marked hypertensive episodes, etc. Echo normal with normal EF & valve function. Sed rate/crp both wnl. TSH wnl. cortisol wnl. Again exact etiology uncertain but by time of discharge her fatigue had resolved. (2) Hypokalemia: replaced and improved prior to discharge ?hyperaldosterone state? renin/jailyn levels were dispatched prior to discharge. while awaiting results -- Dr Benitez from nephrology started her on 12.5mg daily of aldactone. stopped norvasc. (3) Postural orthostatic tachycardia syndrome: Suspect patient has a "POTS" like condition/autonomic insufficiency. Although her BP only dropped about 15 pts with standing her HR went up 35 BPM w/ standing. She has frequent episodes of tachycardia brought on by minimal movement. Seen by cardiology for such - asked to liberalize her salt intake. She will f/u with cardiology post-discharge for this problem. Of note - echo was normal. TSH, cortisol were both normal. (4) HTN (hypertension): stopped amlodipine starting aldactone due to persistent hypokalemia and while awaiting renin/jailyn levels 24-hour urine collection for metanephrines completed renal artery dopplers wnl ruling out FLYNN cortisol wnl TSH wnl (5) SVT (supraventricular tachycardia): 1 brief episode of SVT on the AM of discharge. EKG WNL at admission echo wnl 24-hour urine collection for metanephrines pending due to episodes of tachycardia/headache/etc at home - pending at time of discharge Seen by cardiology - prn use of metoprolol immediate=release recommended for treatment of SVT 30-day event monitor suggested to determine overall frequency of SVT runs (6) Polyuria: Dr Benitez recommended water deprivation test to assess concentrating ability of kidneys 8 hours into the water deprivation test a Urine Osm was sent; this showed normal concentrating ability (Urine OSM was >700) thus, the polyuria was likely to do excess drinking of water/fluids as opposed to some other entity (DM, etc) at discharge the following were advised - 1. f/u with [facility] [place] cardiology 2. f/u with [facility] nephrology 3. evaluation of renin, aldosterone, and lyme tests - all 3 are pending Total Time Total Time Spent Total Time Spent (In Minutes): 45 Total Time Includes: Examination of the Patient, Discharge Planning, Medication Reconciliation and Communication With Other Providers Discharge Plan Discharge Items Patient Disposition: Home - Self-Care Reason For Visit: fatigue, palpitations, elevated blood pressure Discharge Diagnosis: 1. hypokalemia (low potassium) - improved; work-up still pending for the exact cause 2. SVT (supraventricular tachycardia) 3. likely autonomic insufficiency Condition on Discharge: Good Activity: Resume your previous activity Non-emergency contact: Primary Care Provider Call non-emergency contact if: you have any medication questions and your symptoms worsen Follow-up/Referrals: Stewart Ruffin MD [Physician] - 12/24/19 2:15 pm (see Dr Ruffin within 2 weeks ) Adebayo Benitez MD [Physician] - 12/10/19 8:45 am (see Dr Benitez in about 1 week ) Pino Aguilar MD [Primary Care Provider] - 12/10/19 11:30 am (see Dr Aguilar within 1 week A CARDIAC EVENT MONITOR WILL BE MAILED TO YOUR HOME. IT IS BEING ARRANGED BY THE STAFF AT THE [facility] OFFICE. THE KIT WILL CONTAIN EASY TO FOLLOW INSTRUCTIONS AND THE RESULTS WILL BE SENT TO DR. AGUILAR.) Diet: Regular Addtl Attending Provider Instructions: You were treated for the above issues listed in "discharge diagnoses" above. 1. low potassium - improved with supplementation. We are waiting on renin and aldosterone levels to determine if you have a condition called "hyperaldosteronism" that is causing the low potassium. Dr Benitez from nephrology saw you in consult and he recommended low-dose spironolactone to keep the potassium levels normal. Take this daily. 2. SVT - we identified 1 episode of SVT on the morning of 12/06/2019. Dr Oscar martinez from cardiology is recommending a 1/2 tablet of metoprolol to take during episodes of SVT. We have also set you up with a heart monitor for home to guage how often you are having SVT and episodes of tachycardia. This will be mailed to your home. 3. palpitations - it appears that this is due to SVT and sinus tachycardia. You often have sinus tachycardia simply with standing up or doing light activities. You likely have a condition called "autonomic insufficiency." We recommend the following for the autonomic insufficiency - * stay well hydrated day-to-day; recommend drinking 20-30 oz of gatorade or powerade daily * do not restrict salt intake in your diet; in fact we recommend high salt in your diet * on cold days sometimes wearing compression stockings/hose helps with this as well 4. hypertension - * stop your amlodipine * in its place take spironolactone 12.5mg once daily 5. "equivocal" lyme test - a confirmatory western blot test is pending but there is low suspicion of you having active lyme disease. Follow-up -- see separate section Return to [facility] if -- * you have SVT that does not radha despite time and taking your metoprolol * you have severe dizziness or feel like you could pass out * you have extreme weakness * any other concerns Pending Studies at Discharge: Yes Studies:: 1. 24-hour urine collection for metanephrines 2. renin and aldosterone levels 3. western blot testing for lyme disease Stand-Alone Forms: My [facility], Smoking Cessation Medications and DC Order Prescriptions: New spironolactone 25 mg Tablet 12.5 mg PO DAILY@1999 Qty: 30 RF: 2 metoprolol tartrate 25 mg tablet 12.5 mg PO DAILY PRN (Reason: SVT/severe palpitations ) Qty: 20 RF: 0 Discontinued amlodipine 2.5 mg tablet 2.5 mg PO HS RF: 0 Discharge Orders: Discharge Order (Routine); Ordered 12/06/19 Ordered By: Armand Sanchez Admission Data Admit Date/Time: 12/05/19 13:17 Attending Provider: Armand Sanchez Admit Provider: Berenice Power Primary Care Provider: Pino Aguilar Other Providers: Berenice Power ; Adebayo Benitez ; Stewart Ruffin Other Interventions: Discharge Summary Assessment (RN) Last Done: 12/06/19 13:26 DC Date/Time DO NOT enter until pt leaves facility: 12/06/19 13:53 Coding Level of Care Code D/C Day Management >30 mins Diagnoses Fatigue R53.83 Fatigue type: unspecified Hypokalemia E87.6 Postural orthostatic tachycardia syndrome I49.8 HTN (hypertension) I10 Hypertension type: unspecified SVT (supraventricular tachycardia) I47.1 Polyuria R35.8
--- NOTE | 2019-12-06 16:22 | Cardiology Consultation ---
Date of Consultation December 06, 2019 Assessment & Plan (1) Autonomic dysfunction: (2) SVT (supraventricular tachycardia): (3) Fatigue: (4) HTN (hypertension): Etiology for her multiple symptoms and hemodynamic lability uncertain, work-up underway. Her hemodynamic lability is strongly suggestive of mild to moderate autonomic insufficiency (of uncertain etiology at this time). Currently, will focus on management and symptom relief while awaiting results of evaluation by nephrology and endocrinology. Evidence of orthostasis on exam, she does appear mildly volume depleted but not grossly hypovolemic. For initial management, particularly given recent initiation of spironolactone (to manage hypokalemia), recommend liberalizing salt/sodium intake to increase intravascular volume. Also recommended prescription for metoprolol tartrate (short acting) 12.5 mg to be taken on a as needed basis for any recurrent and bothersome palpitations (whether from PSVT or sinus tachycardia), but not to be taken routinely at this time. Agree with discontinuing amlodipine, since this is long-acting and would treat not only nocturnal recumbent hypertension but could exacerbate daytime upright hypotension. Once she has had adequate salt loading/volume repletion, recommend obtaining 24- hour ambulatory blood pressure monitor to assess the degree of recumbent nocturnal hypertension. Depending upon results, could consider a bedtime dosing of clonidine to control nocturnal hypertension, since this would be unlikely to influence or exacerbate her daytime relative hypotension. Certainly, would not consider more extreme measures such as mineralocorticoid replacement at this time, given the lack of extreme hemodynamic derangement presently. Will follow-up with a full outpatient consultation in 1 to 2 weeks. Case discussed with Dr. Hill. History of Present Illness Reason for Consultation: POTS/autonomic insufficiency? Requesting Physician: Armand Sanchez Attending Physician: Armand Sanchez History of Present Illness 59-year-old generally very healthy woman with a history of PSVT and hypertension who is physically active but who noted several months of progressive exercise intolerance and fatigue as well as the episodic recurrence of multiple nonspecific symptoms, including headache, nausea, insomnia, palpitations (tachycardia), who was admitted 12/03/2019 after a particularly pronounced episode involving these multiple symptoms. She denies chest pain or severe dyspnea. 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 She usually feels worse in the morning, of note she had been taking amlodipine 2.5 mg in the evening for hypertension. While hospitalized, she has had several brief episodes of paroxysmal SVT lasting for seconds to minutes with heart rates in the 160 bpm range. Monitor review also shows highly variable heart rate with episodes of moderately rapid onset and offset sinus tachycardia, rates also up to the 160 bpm range. BP recordings by nursing over the past several days show both normotensive and mild to moderately hypertensive readings with no occurrence of hypotension. The highest BP reading is 183/115 mmHg, there are no other diastolic readings above 100 mmHg. Pulse readings recorded by nurses show range of 60-114 bpm, predominantly 60s and 70s. An extensive work-up by nephrology and endocrinology is underway. The patient feels well enough to return home today and continue the work-up as an outpatient. Allergies Allergy/AdvReac Type Severity Reaction Status Date / Time cat dander Allergy Severe SHORTNESS Verified 12/03/19 13:32 OF BREATH amoxicillin Allergy Verified 12/03/19 13:32 ampicillin Allergy Verified 12/03/19 13:32 Home Medications Home Medications Medication Instructions Recorded Confirmed Type metoprolol tartrate 12.5 mg PO DAILY PRN #20 tab 12/06/19 Rx spironolactone 12.5 mg PO DAILY@2000 #30 tab 12/06/19 Rx Patient History Medical History Endometrial polyp History of postmenopausal bleeding Ovarian cyst Polyuria Surgical History S/P dilation and curettage Family History Ovarian cancer Grandmother (Paternal) Coronary heart disease Family/Other Breast cancer Grandmother (Maternal) Denies family history of Kidney disease Colorectal cancer Social History Preferred Language: [place] Communication Ability: Effective Engineer Station Mainline Required: No Beliefs That Will Affect Care: None Current Living Situation: Spouse current occupational status: employed current occupation: physician Feels Safe at Home: Yes Smoking Status: Never smoker Second Hand Exposure: No ; Hx Alcohol Use: Yes Alcohol type: beer Alcohol Intake Frequency Comment: 1 beer a week, but less since feeling unwell starting in July Hx Substance Use: No Review of Systems Constitutional: + fatigue; no fever, no chills, no weight loss and no weight gain Eyes: no problem reported Ear, Nose, Mouth, Throat: no problem reported Respiratory: no cough and no dyspnea Cardiovascular: as per Subjective / HPI Gastrointestinal: no abdominal pain and no change in stools Genitourinary: no problem reported Musculoskeletal: no myalgia Integumentary: no rash and no new lesions Neurologic: no falls and no syncope Psychiatric: no problem reported Hematologic / Lymphatic: no easy bleeding and no easy bruising Physical Exam Physical Exam: Normal habitus middle-aged white female in no distress. BP right arm 164/94 mmHg lying, 154/90 mmHg seated, 124/94 mmHg standing. Moderate increase in pulse rate (up 15 bpm) from sitting to standing. Skin with no ecchymoses or generalized lesions. HEENT: Unremarkable. Neck: Jugular venous pulse normal to mildly reduced (reclined to approximately 30 degrees before visualized), no carotid bruits. Lungs: Clear and equal breath sounds with good excursion. No wheezing on forced exhalation. Cardiac: Regular rhythm, normal S1, physiologically split S2, no murmur, rub, or gallop. Abdomen: Benign. Extremities: no edema, pulses brisk. Neurologic: Normal affect and conversation, nonfocal. Results & Data ([facility]) Vital Signs (Past 12 Hours) Vital Signs Temp Pulse Pulse Resp BP Pulse Ox 12/06/19 13:26 97.9 F 68 20 163/90 H 100 12/06/19 10:14 97.9 F 68 20 163/90 H 100 12/06/19 08:00 60 12/06/19 07:40 114 H 135/86 12/06/19 07:39 101 H 144/93 H 12/06/19 07:37 67 156/92 H Laboratory Results 12/04/19 12/04/19 12/06/19 07:22 07:22 05:56 Hgb 14.5 Potassium 3.9 D BUN 17 Creatinine 0.74 Magnesium 2.1 Diagnostic Findings ECG showed sinus rhythm and was unremarkable. Compared with 06/06/2012 ECG, ventricular rate had increased by 25 bpm, otherwise no significant change. Echocardiogram showed normal LV size and systolic function (EF 60-65%) with normal left ventricular wall thickness and grade 1 diastolic dysfunction. No significant valvular disease. Chest x-ray showed no acute process. Renal ultrasound, renal artery duplex, and abdominal CTA showed as the only abnormality a small right kidney with lower pole renal cortical scarring, otherwise unremarkable. Head CT unremarkable. PG Care Time/CCT Total # of Minutes Spent Total Time Spent with Patient: Total time spent is greater than 50% in coordination of care (as documented) at patient's floor/unit and/or counseling patient: Coding Level of Care Code 34322 Inpt Consult Level 4 Diagnoses Autonomic dysfunction G90.9 SVT (supraventricular tachycardia) I47.1 Fatigue R53.83 Fatigue type: unspecified HTN (hypertension) I10 Hypertension type: unspecified (1) Fatigue Fatigue type: unspecified Qualified Code(s): R53.83 - Other fatigue (2) HTN (hypertension) Hypertension type: unspecified Qualified Code(s): I10 - Essential (primary) hypertension
[2019-12-06] MEDS ORDERED: SPIRONOLACTONE 12.5 MG TAB PO SCH (20:00)
[2019-12-08 10:10] LABS: 18KDIGG Band NON-REACTIVE; 23KDIGG Band NON-REACTIVE; 23KDIGM Band NON-REACTIVE; 28KDIGG Band NON-REACTIVE; 30KDIGG Band NON-REACTIVE; 39KDIGG Band NON-REACTIVE; 39KDIGM Band NON-REACTIVE; 41KDIGG Band REACTIVE; 41KDIGM Band NON-REACTIVE; 45KDIGG Band REACTIVE; 58KDIGG Band NON-REACTIVE; 66KDIGG Band NON-REACTIVE; 93KDIGG Band NON-REACTIVE; Lyme Antibodies, WB IgG NEGATIVE (NEGATIVE); Lyme Antibodies, WB IgM NEGATIVE (NEGATIVE)
[2019-12-08 18:09] LABS: Creatinine, 24 hr Urine 1.29 g/24 h (0.50-2.15)
[2019-12-09 13:00] LABS: Renin Activity 0.69 ng/mL/h (0.25-5.82)
== END 2019-12-06 13:53 | disposition home or self-care (01) | DRG 948 ==
LOC: ED 10:09 → 2S 10:09 → SUATTDRO 13:59 → 2S 14:56